=== PATIENT | male | born 1975 | race Caucasian/White ===

== ENCOUNTER 2022-06-22 01:36 | Emergency (ER) | payer BC, SELFPAY ==
[2022-06-22 01:47] VITALS: BP 152/109; PULSE 86; RESP 16; TEMP 36.1; O2SAT 96
[2022-06-22] MEDS: GI COCKTAIL (VISC LIDO/ANTACID) 30 ML PO (02:24)
--- NOTE | 2022-06-22 02:26 | ED.CHESTPAIN ---
HPI - Chest Pain General Chief Complaint: Chest Pain Stated Complaint: Chest pain Time Seen by Provider: 06/22/22 01:49 History of Present Illness HPI narrative: Patient presents with chest pain that started at approximately 9:30 p.m. which is 4 hours prior to arrival. Patient states that he had chicken with red hot sauce, peppers and other spicy foods. When he went to lie down at the half time of the football game, noticed pain in the epigastric region that he thought was heartburn. He tried taking some Prilosec and has not had improvement in his symptoms. He states that he had similar symptoms in mid September. At that time, he called the ambulance and was taken to [facility]. It sounds as though he had an ST-elevation ND and was taken urgently to the microbiology lab manager where he received 2 stents. He has continued to follow up with his chair lift operator, most recently about 3 weeks ago. And not able to see the records through our health system but he is able to pull them up through my chart. I am able to see an EKG report though not the actual image. This describes and chronic appearing anteroseptal infarct with a rightward axis. Patient states that he had alcohol 2 days ago, drinking 3 heart is ulcers which is unusual for him and he also continues to smoke. He reports good compliance with his statin, aspirin, Plavix and metoprolol. The epigastric area pain radiates up into the throat, and is accompanied by a burning sensation. It is nonexertional. There is no cough. There is no dizziness, no dyspnea. Chest pain is not reproducible with palpation. He did not try taking any other medications besides the Prilosec to help with his symptoms. Pain is constant, though more mild than previously. Past medical history notable for fatty liver and the history of coronary artery disease. Surgical history is notable for the 2 stents placed in his heart in September and also a surgery for pes excavatum. This was not recently. As far as I can tell as home medications are Lipitor, aspirin 81 mg once daily, Plavix 75 mg once daily, metoprolol, unknown dose. Socially recent alcohol ingestion, chronic tobacco use. Family history also notable for heart disease. Related Data Allergies Allergy/AdvReac Type Severity Reaction Status Date / Time No Known Drug Allergies Allergy Verified 06/22/22 01:51 Review of Systems Narrative R was notable for the cardiac and GI symptoms as above, otherwise denies generalized, HEENT, respiratory, skin, musculoskeletal, mental health concerns. [facility] Medical History Coronary artery disease Fatty liver Surgical History H/O heart artery stent Social History Smoking Status: Current every day smoker Second hand tobacco smoke exposure: No How often do you have a drink containing alcohol: 2-3 times a week How many standard drinks containing alcohol do you have on a typical day: 1 or 2 AUDIT-C Alcohol total score: 3 Non-prescribed substance use: denies use service: No Exam Const Vital Signs, click to edit/add: Vital Signs - 24 hr 06/22/22 01:47 Temperature 97.0 F L Pulse Rate [Right Pulse Oximeter] 86 Respiratory Rate 16 Blood Pressure [Left Upper Arm] 152/109 H Pulse Oximetry 96 Oxygen Delivery Method Room Air Documenting provider has reviewed patient's vital signs: yes Common normals: no apparent distress General appearance: cooperative and well kempt [facility] Common normals: normocephalic Head and scalp: normocephalic Mouth: oral and palatal mucosa normal Throat: posterior oropharynx normal Eye Common normals: EOMs intact bilaterally, conjunctivae normal and no scleral icterus Conjunctiva: conjunctiva(e) normal Neck & C-Spine Common normals: full ROM, no lymphadenopathy and thyroid normal Thyroid: thyroid normal Chest Common normals: inspection of chest normal Resp Common normals: normal respiratory effort and clear to auscultation bilaterally Effort & inspection: able to speak in complete sentences Auscultation: clear to auscultation bilaterally Cardio Common normals: regular rate, regular rhythm, S1 normal heart sound, S2 normal heart sound, no murmurs and peripheral pulses 2+ throughout Rate: regular rate Rhythm: regular rhythm Heart sounds: S1 normal and S2 normal Peripheral pulses: pulses 2+ throughout GI Common normals: Normal to inspection, nondistended, normoactive bowel sounds present, no hepatosplenomegaly and no masses Palpation: no hepatosplenomegaly Other: Mildly tender to palpation of epigastric region. No rebound tenderness nor guarding. Back & Pelvis Common normals: thoracic and lumbar spine normal to inspection Extremity Common normals: no pedal edema Neuro Speech: speech normal Motor exam: no tremor noted and no movement abnormalities noted Psych Common normals: speech normal Appearance: well kempt Attitude: calm and engaged Speech: normal speech Insight: insight good Judgement: judgment good Skin Common normals: no rashes or lesions noted General skin exam: no rashes or lesions noted Course Vital Signs Vital signs: Initial Vital Signs Temperature 97.0 F L 06/22/22 01:47 Temperature Source Temporal Artery Scan 06/22/22 01:47 Pulse Rate 86 06/22/22 01:47 Pulse Rhythm 06/22/22 01:47 Respiratory Rate 16 06/22/22 01:47 Blood Pressure 152/109 H 06/22/22 01:47 Blood Pressure Mean 123 06/22/22 01:47 Blood Pressure Position Semi-Fowlers 06/22/22 01:47 Pulse Oximetry 96 06/22/22 01:47 Oxygen Delivery Method 06/22/22 01:47 Vital Signs Temperature 97.0 F L 06/22/22 01:47 Pulse Rate 86 06/22/22 01:47 Respiratory Rate 16 06/22/22 01:47 Blood Pressure 152/109 H 06/22/22 01:47 Pulse Oximetry 96 06/22/22 01:47 Oxygen Delivery Method 06/22/22 01:47 Temperature 97.0 F L 06/22/22 01:47 Pulse Rate 86 06/22/22 01:47 Respiratory Rate 16 06/22/22 01:47 Blood Pressure 152/109 H 06/22/22 01:47 Pulse Oximetry 96 06/22/22 01:47 Oxygen Delivery Method 06/22/22 01:47 MDM - Chest Pain MDM Narrative Medical decision making narrative: Counseled patient on diagnosis. EKG is performed, some mild anteroseptal changes noted but exactly the same as described from his previous EKG visible in my chart. Confirms that he has already had his aspirin and Plavix for today, these are not readministered. He suspects his symptoms are GI related. I would stable with good confidence that his EKG is unchanged. I recommended blood work to look at troponin levels and a GI cocktail. I counseled patient that I would like to plan to repeat the blood work in 90 minutes as well, he is uncertain if he will go through with this as he is hoping to get to [place] by a certain time tomorrow. Will re-evaluate after GI cocktail. Reviewed initial troponin of 0.03. EKG as stated likely unchanged. Patient had near complete resolution of his symptoms with GI cocktail. I recommended repeat labs a 90 minutes, he declines this, stating that he feels much better and agrees that this is heartburn related. He declines to wait for the remainder of his labs that are pending. He does promise that he will follow up with his chair lift operator if his symptoms continue to occur. Differential Diagnosis Differential diagnosis: Likely pneumothorax, stable angina, unstable angina pectoris, atypical chest pain, st elevation myocardial infarction, costochondritis, chest pain and biliary colic Medical Records Data Attestation: I reviewed the patient's medical records. Lab Data Attestation: I reviewed the patient's lab results. Labs: Lab Results 06/22/22 06/22/22 Range/Units 02:11 02:20 WBC 7.64 (4.50-11.00) K/uL RBC 4.74 (4.30-5.90) m/uL Hgb 11.5 L (13.5-17.5) gm/dL Hct 37.9 (37.0-53.0) % MCV 80 (80-100) fL MCH 24 L (26-34) pg MCHC 30 L (32-36) gm/dL RDW Coeff of Nelsy 16.3 H (11.5-15.5) % Plt Count 296 (140-440) K/uL Neut % (Auto) 58.4 (42.0-72.0) % Lymph % (Auto) 23.0 (20-44) % [place] % (Auto) 14.7 H (0.0-11.0) % Eos % (Auto) 3.3 (0.0-7.0) % Baso % (Auto) 0.5 (0.0-3.0) % Neut # (Auto) 4.46 (1.7-7.0) K/uL Lymph # (Auto) 1.76 (0.90-2.90) K/uL [place] # (Auto) 1.10 H (0.00-0.90) K/UL Eos # (Auto) 0.25 (0.00-0.50) K/uL Baso # (Auto) 0.04 (0.00-0.30) K/uL Abs Immat Gran (auto) 0.01 (0.00-0.30) K/uL POC Troponin I 0.03 (0.01-0.04) ng/ml ECG Data Attestation: I personally reviewed and interpreted this ECG as follows: Interpretation: I get normal sinus rhythm but there are some anterior septal changes noted in lead 2, V2 and V3. Overall rightward axis. This is unchanged from the interpretation from 05/26/2022 in my chart from [place]. Discharge Plan Discharge Clinical Impression: Chest pain due to GERD Patient Disposition: Home, Self-Care Condition: Improved Instructions: GERD (Gastroesophageal Reflux Disease) (DC) Additional Instructions: Avoid alcohol, smoking, carbonated beverages and spicy food. Keep taking all other cardiac medications as prescribed. Follow up with her chair lift operator if you continue to have symptoms. It is okay to keep taking Prilosec daily for the next few days and use Tums as needed if her heartburn returns. Activity Level: No Restrictions Discharge Diet: Regular Follow Up/Referrals: Provider,Not a Local [Primary Care Provider] - Stand Alone Forms: [employer] Info Instructions
[2022-06-22 02:37] LABS: Basophils Absolute Auto 0.04 K/uL (0.00-0.30); Basophils Percent Auto 0.5 % (0.0-3.0); Eosinophils Absolute Auto 0.25 K/uL (0.00-0.50); Eosinophils Percent Auto 3.3 % (0.0-7.0); Hematocrit 37.9 % (37.0-53.0); Hemoglobin* 11.5 gm/dL (13.5-17.5); Immature Granulocytes Abs Auto 0.01 K/uL (0.00-0.30); Lymphocytes Absolute Auto 1.76 K/uL (0.90-2.90); Mean Corpuscular HGB Conc 30 gm/dL (32-36); Mean Corpuscular Hemoglobin 24 pg (26-34); Mean Corpuscular Volume 80 fL (80-100); Monocytes Percent Auto 14.7 % (0.0-11.0); Neutrophils Absolute Auto 4.46 K/uL (1.7-7.0); Neutrophils Percent Auto 58.4 % (42.0-72.0); Platelet Count* 296 K/uL (140-440); RDW Coefficient of Variation % 16.3 % (11.5-15.5); Red Blood Count 4.74 m/uL (4.30-5.90); White Blood Count* 7.64 K/uL (4.50-11.00)
[2022-06-22 02:39] LABS: Slide Review Reflex No
[2022-06-22 02:39] LABS: Troponin, Point-of-Care* 0.03 ng/ml (0.01-0.04)
[2022-06-22 02:49] LABS: Chloride* 104 mmol/L (96-114); Sodium* 139 mmol/L (135-149)
[2022-06-22 02:52] LABS: Blood Urea Nitrogen* 21 mg/dL (5-24); Carbon Dioxide* 26 mmol/L (20-32); Creatinine* 0.9 mg/dL (0.5-1.5); Estimated Glomerular Filt Rate 107 ml/min; Glucose* 107 mg/dL (60-115)
[2022-06-22 02:53] LABS: Calcium* 8.6 mg/dL (8.4-10.6)
[2022-06-22 03:02] LABS: NT Pro B Type NatriureticPept* 708 PG/mL (0-125)
[2022-06-22 03:05] LABS: Troponin I* 0.03 ng/mL (0.01-0.04)
== END 2022-06-22 03:00 | disposition home or self-care (01) ==
PROVIDERS: Emergency Provider Family Medicine
DX: K21.9 Gastro-esophageal reflux disease without esophagitis (principal); I25.2 Old myocardial infarction; Z95.5 Presence of coronary angioplasty implant and graft
CPT/HCPCS: 36415; 80048; 83880; 84484; 85025; 93005; 99283; A9270